=== PATIENT | male | born 1965 | race Caucasian/White ===

== ENCOUNTER 2017-01-01 16:14 | Emergency (ER) | payer OTHER ==
[~2017-01-01] VITALS: Ht 175.3 cm; Wt 100.0 kg
[2017-01-01 16:31] VITALS: BP 133/95; PULSE 86; RESP 16; O2SAT 97
[2017-01-01 18:30] LABS: BASOPHILS % (AUTO) 0.3 % (0-3); EOSINOPHILS % (AUTO) 12.9 % (0-5); MONOCYTES % (AUTO) 9.8 % (4-12); Mean Corpuscular Hemoglobin 31.7 pg (27.0-35.0); Mean Corpuscular Volume 93.1 fL (81-100); NEUTROPHILS % (AUTO) 61.1 % (40-74); Platelet Count 210 bil/L (150-400)
--- NOTE | 2017-01-01 18:45 | ED.REPORT ---
HPI-Rash / Abscess Date of Service Jan 01, 2017 ED Provider: Doc,Ed MD History of Present Illness: 51-year-old male here for a rash. It has been present for weeks. Started around his waistline and gradually spread down his legs up his chest on his arms. It is now gradually spreading up his neck. The only place that does not have a rash is his face. It is very itchy, worse at night. No new contacts, no scabies contacts, he has not been sleeping any different beds or couches. No new products. No new meds. He is only on lisinopril and amlodipine. Takes no other supplements besides taking 2 red bull's a day. He has been seen at the walk-in clinic and started taking Benadryl since Itching the Rash Is Still Increasing. Nursing Notes Stated Complaint: RASH/SENT FROM Chief Complaint: Skin Rash/Abscess Nursing Notes Reviewed: Yes Allergies: Coded Allergies: No Known Allergies (Unverified , 01/01/17) Scheduled Prednisone (PredniSONE) 20 Mg Tablet 20 MG PO BID Ranitidine (Ranitidine) 150 Mg Capsule 150 MG PO BID General Time Seen by MD: 18:34 Chief Complaint Rash Hx Obtained From: Patient Arrived By: Walk-in Onset Occurred: More than a week ago... (3 weeks) Symptom Duration: More than a week... (4 weeks) Location: : Generalized Severity: Current: No pain currently Severity: Maximum: No pain Pertinent Negative: Pt denies other symptoms Similar Sx Previous: No Review of Systems Basic Review of Systems : No dysuria Hematologic: No bleeding Neurologic: NL mental status Psychiatric: Normal thought content Constitutional: Denies: Chills, Fatigue, Fever Respiratory: Denies: Dyspnea on exertion Cardiovascular: Denies: Chest pain GI: Denies: Abdominal pain Skin: Reports Rash Complete sys rev & neg: except as marked. Physical Exam Physical Exam Notes: Generalized body rash sparing face. Erythematous papules Initial Vital Signs Vital Signs (First) Date Time Temp Pulse Resp B/P Pulse Ox O2 Delivery O2 Flow Rate FiO2 01/01/17 16:31 36.1 86 16 133/95 97 01/01/17 19:31 Room Air Initial VS: Reviewed Head / Eyes: Atraumatic, Normocephalic, PERRL ENT: Mucous membranes moist, Conjunctiva normal Neck: Non-tender, Full range of motion Respiratory: Breath sounds normal, Clear to auscultation, No respiratory distress Cardiovascular: Regular rate & rhythm, Heart sounds normal Abdomen / GI: Soft, Non-tender Neurologic: Alert, Oriented, Nonfocal Psychiatric: Mood/affect normal, Behavior normal, Normal thought content Color / Condition: Positive: Rash present Rash / Lesion Notes: Generalized rash over entirety of his body sparing his face. Erythematous papules some discrete some confluence. small amt of scaling present. Large area of erythema over his waistband Rash / Lesion Location: Positive: Generalized Respiratory / Chest: Atraumatic, Breath sounds NL, Breath sounds = bilat, No respiratory distress Cardiovascular: Heart rate NL, Regular rhythm, Heart sounds NL Interpretation & Diagnostics Lab Results Interpretation Result Diagram: 01/01/17 1634 01/01/17 1634 Test 01/01/17 16:34 White Blood Count 7.9th/mm3 (3.8-10.1) Red Blood Count 5.05mil/mm3 (4.40-5.80) Hemoglobin 16.0g/dL (13.8-17.2) Hematocrit 47.0% (41.0-50.0) Mean Corpuscular Volume 93.1fL (81-100) Mean Corpuscular Hemoglobin 31.7pg (27.0-35.0) Mean Corpuscular Hemoglobin Concent 34.0% (32.0-37.0) Red Cell Distribution Width 12.2% (12.3-15.4) Platelet Count 210bil/L (150-400) Neutrophils (%) (Auto) 61.1% (40-74) Lymphocytes (%) (Auto) 15.8% (14-46) Monocytes (%) (Auto) 9.8% (4-12) Eosinophils (%) (Auto) 12.9% (0-5) Basophils (%) (Auto) 0.3% (0-3) Sodium Level 137mEq/L (134-144) Potassium Level 4.0mEq/L (3.5-5.2) Chloride Level 98mEq/L (97-108) Carbon Dioxide Level 23mmol/L (18-29) Blood Urea Nitrogen 13mg/dL (6-24) Creatinine 0.91mg/dL (0.76-1.27) Estimat Glomerular Filtration Rate 93mL/min (>59) Glucose Level 101mg/dL (60-99) Calcium Level 9.6mg/dL (8.5-10.1) Magnesium Level 2.5mg/dL (1.6-2.6) Total Bilirubin 0.5mg/dL (0.0-1.2) Aspartate Amino Transf (AST/SGOT) 41U/L (0-50) Alanine Aminotransferase (ALT/SGPT) 46U/L (0-44) Alkaline Phosphatase 65U/L (25-150) Total Protein 7.6g/dL (6.4-8.4) Albumin 4.8g/dL (3.4-5.0) Hold Kirby Top Tube Received (Received) Re-Eval/Medical Decision Med Decision/Clinical Course Discussed with patient this looks like an allergic reaction. We will treat as such follow-up with pharmacy specialist Discharge & Departure Shift Change Sign-Out Laboratory Evaluation: Lab evaluation discussed Impression: Primary Impression: Allergic reaction Encounter type: initial encounter Qualified Code: T78.40XA - Allergy, unspecified, initial encounter Disposition: Home Discharge Condition Condition: Stable Patient Instructions: Contact Dermatitis (ED) Additional Instructions: Your symptoms are likely caused by an allergy. Take prednisone twice a day for 5 days. Continue your Benadryl around the clock. Add ranitidine twice a day until rash gone. Get rid of all potentially allergen producing products. Use free and clear soaps and detergents only. Consider your medications or red bulls as possible suspects. If rash does not go away or need to follow up with pharmacy specialist. Return if becomes severe, if fevers or any worsening in condition Referrals: OTHER,PHYSICIAN (PCP) EDSupervising Provider for APC: Leoncio Patino Linnea K ARNP Jan 01, 2017 18:45
[2017-01-01 18:57] LABS: Magnesium 2.5 mg/dL (1.6-2.6)
[2017-01-01] MEDS ORDERED: predniSONE 20 mg Tablet PO ONE (19:00)
[2017-01-01] MEDS ORDERED: PRE20 PO (19:22)
[2017-01-01] MEDS ORDERED: RANI150C4 PO (19:22)
[2017-01-01 19:31] VITALS: BP 128/87; PULSE 87; RESP 14; O2SAT 99
== END 2017-01-01 19:32 | disposition home or self-care (01) ==
LOC: SED 16:14
DX: T78.40XA Allergy, unspecified, initial encounter (principal); Y93.89 Activity, other specified; Y92.89 Other specified places as the place of occurrence of the external cause; Y99.8 Other external cause status